=== PATIENT | male | born 1965 ===

== ENCOUNTER 2024-03-16 01:12 | Outpatient (CLI) | payer OTHER, SELFPAY ==
--- NOTE | 2024-03-16 | DI.CT_ITS ---
Exam(s) CT ABDOMEN PELVIS W EXAM: CT ABDOMEN PELVIS W CLINICAL HISTORY: 20-lb abnl wt loss, R63.4; early satiety; loose stools; ? malignancy TECHNIQUE: Imaging Protocol: Axial computed tomography images with coronal and sagittal reformatted images were created and reviewed. CONTRAST MATERIAL: Intravenous: Omnipaque 350 Contrast volume:100 mL Oral: Yes COMPARISON: No exams were available for comparison FINDINGS: ABDOMEN: Lung Bases: No acute abnormality. Liver: Normal density. There is a tiny hypodensity in the liver in the left lobe which is too small f or further characterization but likely reflects a small cyst. No suspicious hepatic lesion is seen. Portal, Superior Mesenteric, and Splenic Veins: Unremarkable. Gallbladder and Biliary Tract: No radiodense calculus or dilation. Pancreas: Normal density, no abnormal calcifications or inflammatory process. Spleen: Normal. Adrenals: No masses seen. Kidneys: Normal size, contour and axis. No radiodense stones or obstructive uropathy. No masses seen. Abdominal Aorta: Abdominal portion non-dilated. Bowel: No obstruction or bowel wall thickening. There are diverticula seen in the colon but no evide nce of acute diverticulitis. Appendix is unremarkable. Portions of the ascending colon are incomplet aneta distended limiting evaluation. Peritoneal Cavity: No ascites, collection or mesenteric inflammatory response. No free air. Lymph Nodes: Within normal limits. Bones: Within normal limits for the patient's age. Soft Tissues: Unremarkable. PELVIS: Bladder: Symmetric distention, no gross wall thickening. Reproductive Organs: The prostate gland appears mildly enlarged. Lymph Nodes: Within normal limits. Bones: Within normal limits for the patient's age. IMPRESSION: 1. No acute abdominal or pelvic process. 2. Colonic diverticulosis without evidence of acute diverticulitis. 3. Mildly enlarged prostate gland. RADIATION DOSE DELIVERED: 598.89mGy.cm Total DLP DATA REPOSITORY: All CT scans at this facility are submitted to the National Radiology Data Registry (NRDR) Dose Index Registry (DIR) with the [employer] ([employer]). RADIATION OPTIMIZATION: All CT scans at this facility use at least one of these dose optimization te chniques: automated exposure control; mA and/or kV adjustment per patient size (includes targeted exa ms where dose is matched to clinical indication); or iterative reconstruction.
[2024-03-16] MEDS: Barium Sulfate 2% W/V-Berry Smoothie 450 ML BTL PO ×2 (10:05→10:06)
[2024-03-16 10:19] LABS: BUN 16 mg/dL (7-18); CREATININE 1.2 mg/dL (0.70-1.30); Estimated GFR 70.53 (mL/min/1.73m2)
[2024-03-16] MEDS: Normal Saline - Diluent 50 ML VIAL IJ (11:38)
[2024-03-16] MEDS: Omnipaque 350 MG/ML 500 ML BTL-Imaging package 100 ML IJ (11:44)
== END 2024-03-16 01:32 ==
PROVIDERS: Visit Provider Physician Assistant
DX: K57.30 Diverticulosis of large intestine without perforation or abscess without bleeding (principal)
CPT/HCPCS: 84520; 74177; 82565